=== PATIENT | male | born 1970 | race Caucasian/White ===

== ENCOUNTER 2018-05-21 19:15 | Emergency (ER) | payer MEDICAID ==
[~2018-05-21] VITALS: Ht 180.3 cm; Wt 109.1 kg
[2018-05-21] MEDS ORDERED: TRAZ-219 PO (19:33)
[2018-05-21] MEDS ORDERED: FLUO-191 PO (19:33)
[2018-05-21 22:16] VITALS: BP 149/85
== END 2018-05-21 22:23 | disposition home or self-care (01) ==
LOC: EMS 19:19
DX: F10.10 Alcohol abuse, uncomplicated (principal); F32.9 Major depressive disorder, single episode, unspecified; F19.90 Other psychoactive substance use, unspecified, uncomplicated